=== PATIENT | male | born 1950 | race African-American/Black ===

== ENCOUNTER 2017-08-08 16:27 | Observation (INO) | payer MEDICAID ==
--- NOTE | 2017-08-08 16:41 | Emergency Department Record ---
History of Present Illness - General Chief complaint: Nausea, Vomiting, Diarrhea Stated complaint: DIARRHEA,VOMITING Time Seen by Provider: 08/08/17 16:38 Source: Patient Mode of Arrival: Wheelchair Limitations: No limitations - History of Present Illness Initial comments: The patient is here due to a 2 hour hx of the acute onset of first nausea then vomiting and loose watery stools. He thinks he may have food poisoning. The patient denies any blood in the stool or vomit. He states he is having some abdominal cramping off and on and did earlier have some JORDAN while vomiting but that has resolved. He has had no CP, fever, back pain, or URENA. The patient states no one at home is ill and his only abdominal surgery is a hernia. MD complaint: Abdominal pain, Diarrhea, Nausea, Vomiting Onset/Timin -: Hour(s) Description of Vomiting: Watery Description of Diarrhea: Water Associated Abdominal Pain: Yes Location: Diffuse Radiation: None Severity: Severe Severity scale (1-10): 10 Quality: Aching, Cramping Consistency: Constant Improves with: None Worsens with: None Context: Possible food poisoning Associated Symptoms: Nausea/vomiting - Related Data Home Medications Medication Instructions Recorded Confirmed Last Taken No Home Med [NO HOME MEDS] 08/08/17 08/08/17 Unknown Allergies Allergy/AdvReac Type Severity Reaction Status Date / Time Sulfa (Sulfonamide Allergy PT UNSURE Verified 08/08/17 16:37 Antibiotics) OF REACTION Travel Screening - Travel/Exposure Within Last 30 Days Have you traveled within the last 30 days?: No Review of Systems Constitutional: Denies: Chills, Fever Eyes: Denies: Eye discharge ENT: Denies: Congestion Respiratory: Denies: Cough, Dyspnea Past Medical History - SOCIAL HISTORY Smoking Status: Never smoker Alcohol Use: None Drug Use: None - RESPIRATORY Hx Respiratory Disorders: No - CARDIOVASCULAR Hx Cardio Disorders: No - NEURO Hx Neuro Disorders: No - GI Hx GI Disorders: No - Hx Genitourinary Disorders: No - ENDOCRINE Hx Endocrine Disorders: No - MUSCULOSKELETAL Hx Musculoskeletal Disorders: No - PSYCH Hx Psych Problems: No - HEMATOLOGY/ONCOLOGY Hx Hematology/Oncology Disorders: No Family Medical History Any Significant Family History?: No Physical Exam - General General Appearance: Alert, Oriented x3, Cooperative, No acute distress - Head Head exam: Atraumatic, Normocephalic, Normal inspection - Eye Eye exam: Normal appearance, PERRL, EOMI - Neck Neck exam: Normal inspection, Full ROM. negative: Tenderness - Respiratory Respiratory exam: Normal lung sounds bilaterally. negative: Respiratory distress - Cardiovascular Cardiovascular Exam: Regular rate, Normal rhythm, Normal heart sounds - GI/Abdominal GI/Abdominal exam: Soft, Normal bowel sounds. negative: Tenderness - Extremities Extremities exam: Normal inspection, Full ROM, Normal capillary refill. negative: Tenderness - Neurological Neurological exam: Alert, Normal gait, Oriented X3. negative: Abnormal gait, Altered, Motor sensory deficit Course Vital Signs 08/08/17 16:29 Temperature 97.7 F Pulse Rate 62 Respiratory 18 Rate Blood Pressure 159/82 Pulse Ox 100 - Reevaluation(s) Reevaluation #1: The patient is doing a lot better at this time. He is resting comfortably with no pain, nausea, or discomfort. On exam his abdomen is very soft and nontender in all 4 quads. 08/08/17 17:38 Reevaluation #2: The patient now is vomiting again and now just began to complain of mild chest discomfort with mild SOB. He denies any signficant AP but is still nauseated. Due to the new symptoms and also the fact his drug screen was positive for cocaine we will order cardiac enzymes and an EKG. 08/08/17 18:56 Reevaluation #3: Presently the patient is now denying any chest discomfort or SOB but is only have diffuse upper AP. He is still nauseated with vomiting. Due to that fact we will order an abdominal CT. 08/08/17 19:03 Reevaluation #4: The patient is doing better at this time. His care will be transferred to Dr. Friedman at 19:00 due to shift change. 08/08/17 19:07 Medical Decision Making - Data Complexity MDM Data: Labs Ordered and/or Reviewed, EKG Ordered and/or Reviewed - Lab Data Result diagrams: 08/08/17 17:19 08/08/17 17:19 - EKG Data -: EKG Interpreted by Me EKG: No Acute Changes, Normal EKG Disposition Forms: Patient Portal Access Quality - Quality Measures Quality Measures: N/A - Blood Pressure Screening View Details: Yes Does Patient Have Any of the Following: No Blood Pressure Classification: Pre-Hypertensive BP Reading Systolic Measurement: 159 Diastolic Measurement: 82 Screening for High Blood Pressure: < Pre-Hypertensive BP, F/U Documented > [ G8950] Pre-Hypertensive Follow-up Interventions: Referral to alternative/primary care provider.
[2017-08-08] MEDS ORDERED: 0.9 % SODIUM CHLORIDE 1,000 ML BAG IV ONE ×2 (16:44→18:06)
[2017-08-08] MEDS ORDERED: ONDANSETRON HCL IV 4 MG/2 ML VIAL IV ONE (16:44)
[2017-08-08 17:12] LABS: HEMATOCRIT 43.5 % (42.0-52.0); HEMOGLOBIN 14.2 gm/dl (14.0-18.0); MEAN CELL VOLUME 77.7 fl (81-97); MEAN CORPUSCULAR HEMOGLOBIN 25.4 pg (27-33); MEAN CORPUSCULAR HGB CONC 32.6 g/dl (32-36); MEAN PLATELET VOLUME 10.1 fl (7.4-10.4); PLATELET COUNT 402 K/uL (130-400); RED CELL DISTRIBUTION WIDTH 14.9 % (11.5-14.5); WHITE BLOOD COUNT W/O DIFF 11.6 K/uL (4.2-12.2)
[2017-08-08 17:26] LABS: BLOOD UREA NITROGEN 20 mg/dL (8-23); CREATININE 1.3 mg/dL (0.7-1.2); EST GLOMERULAR FILTRATION RATE 59 mL/min
[2017-08-08 17:27] LABS: TOTAL PROTEIN 7.9 g/dL (6.6-8.7)
[2017-08-08 17:29] LABS: GLUCOSE,RANDOM 171 mg/dL (74-109)
[2017-08-08 17:31] LABS: ALBUMIN 4.8 g/dL (4.0-5.0); ALT/SGPT 20 U/L (<41); AST/SGOT 30 U/L (10.0-50.0)
[2017-08-08 17:32] LABS: ALKALINE PHOSPHATASE 65 U/L (40-129); LIPASE 24 U/L (13-60)
[2017-08-08 17:37] LABS: BILIRUBIN,DIRECT < 0.2 mg/dL (0-0.3)
[2017-08-08 18:40] LABS: URINE APPEARANCE CLEAR; URINE BILIRUBIN NEGATIVE (NEGATIVE); URINE BLOOD SMALL (NEGATIVE); URINE COLOR YELLOW; URINE GLUCOSE (UA) NEGATIVE (NEGATIVE); URINE KETONE 15 mg/dL (NEGATIVE); URINE LEUKOCYTE ESTERASE NEGATIVE (NEGATIVE); URINE NITRITE NEGATIVE (NEGATIVE); URINE PROTEIN NEGATIVE (NEGATIVE); URINE UROBILINOGEN 0.2 E.U./dL (0.20 - 1.00)
[2017-08-08 18:47] LABS: COCAINE SCREEN URINE DETECTED; THC SCREEN URINE DETECTED
[2017-08-08 18:48] LABS: AMPHETAMINE SCREEN URINE NOT DETECTED; BARBITURATE SCREEN URINE NOT DETECTED; BENZODIAZEPINE SCREEN URINE NOT DETECTED; METHADONE SCREEN URINE NOT DETECTED; METHAMPHETAMINE SCREEN NOT DETECTED; OPIATE SCREEN URINE NOT DETECTED; OXYCODONE SCREEN URINE NOT DETECTED; PHENCYCLIDINE SCREEN URINE NOT DETECTED; PROPOXYPHENE SCREEN URINE NOT DETECTED; TRICYCLIC ANTIDEPRESSANT SCRN NOT DETECTED
[2017-08-08] MEDS ORDERED: ONDANSETRON HCL IV 4 MG/2 ML VIAL IVP ONE (18:54)
[2017-08-08 18:55] LABS: URINE EPITHELIAL CELLS 0 - 2 (FEW); URINE MUCUS MODERATE; URINE WBC 0 - 2 (0-2/hpf)
[2017-08-08] MEDS ORDERED: SUCRALFATE 1 G/10 ML UD PO ONE (19:02)
[2017-08-08 19:27] LABS: CREATINE PHOSPHOKINASE 802 U/L (39-308)
[2017-08-08 19:28] LABS: CKMB 6.7 ng/mL (<6.73)
[2017-08-08 19:30] LABS: CKMB RELATIVE INDEX 0.84 % (0-4)
[2017-08-08] MEDS ORDERED: PROMETHAZINE HCL 25 MG in 0.9 % SODIUM CHLORIDE 100ML 100 ML IVPB ONE (20:07)
--- NOTE | 2017-08-08 21:35 | Emergency Department Record ---
History of Present Illness - General Chief complaint: Nausea, Vomiting, Diarrhea Stated complaint: DIARRHEA,VOMITING Time Seen by Provider: 08/08/17 16:38 Source: Patient Mode of Arrival: Wheelchair Limitations: No limitations - History of Present Illness MD complaint: Abdominal pain, Diarrhea, Nausea, Vomiting Onset/Timin -: Hour(s) Description of Vomiting: Watery Description of Diarrhea: Water Associated Abdominal Pain: Yes Location: Diffuse Radiation: None Severity: Severe Severity scale (1-10): 10 Quality: Aching, Cramping Consistency: Constant Improves with: None Worsens with: None Context: Possible food poisoning Associated Symptoms: Nausea/vomiting - Related Data Home Medications Medication Instructions Recorded Confirmed Last Taken No Home Med [NO HOME MEDS] 08/08/17 08/08/17 Unknown Allergies Allergy/AdvReac Type Severity Reaction Status Date / Time Sulfa (Sulfonamide Allergy PT UNSURE Verified 08/08/17 16:37 Antibiotics) OF REACTION Travel Screening - Travel/Exposure Within Last 30 Days Have you traveled within the last 30 days?: No Review of Systems Constitutional: Denies: Chills, Fever Eyes: Denies: Eye discharge ENT: Denies: Congestion Respiratory: Denies: Cough, Dyspnea Past Medical History - SOCIAL HISTORY Smoking Status: Never smoker Alcohol Use: None Drug Use: None - RESPIRATORY Hx Respiratory Disorders: No - CARDIOVASCULAR Hx Cardio Disorders: No - NEURO Hx Neuro Disorders: No - GI Hx GI Disorders: No - Hx Genitourinary Disorders: No - ENDOCRINE Hx Endocrine Disorders: No - MUSCULOSKELETAL Hx Musculoskeletal Disorders: No - PSYCH Hx Psych Problems: No - HEMATOLOGY/ONCOLOGY Hx Hematology/Oncology Disorders: No Family Medical History Any Significant Family History?: No Physical Exam - General Limitations: No limitations Course Vital Signs 08/08/17 08/08/17 08/08/17 16:29 19:38 20:41 Temperature 97.7 F Pulse Rate 62 Pulse Rate [ 56 L 62 Pulse Ox Probe] Respiratory 18 14 14 Rate Blood Pressure 159/82 Blood Pressure 105/47 169/82 [Right Arm] Pulse Ox 100 94 L 99 - Reevaluation(s) Reevaluation #1: 08/08/17 21:26 pt is still vomiting. Medical Decision Making - Lab Data Result diagrams: 08/08/17 17:19 08/08/17 17:19 Lab Results 08/08/17 08/08/17 08/08/17 Range/Units 16:44 16:44 16:50 WBC (4.2-12.2) K/uL RBC (4.40-5.70) M/uL Hgb (14.0-18.0) gm/dl Hct (42.0-52.0) % MCV (81-97) fl MCH (27-33) pg MCHC (32-36) g/dl RDW (11.5-14.5) % Plt Count (130-400) K/uL MPV (7.4-10.4) fl Neutrophils % (47-80) % Band Neutrophils % (0-5) % Eosinophils % Basophils % Lymphocytes (16-45) % Monocytes (0-9) % Basophils (0-6) % Eosinophil Count (0-6) % Sodium (136-145) mmol/L Potassium (3.4-4.5) mmol/L Chloride (98-107) mmol/L Carbon Dioxide (22-29) mmol/L Anion Gap (7-16) BUN (8-23) mg/dL Creatinine (0.7-1.2) mg/dL Estimated GFR mL/min Random Glucose (74-109) mg/dL Calcium (8.8-10.2) mg/dL Total Bilirubin (0.2-1.0) mg/dL Direct Bilirubin (0-0.3) mg/dL AST (10.0-50.0) U/L ALT (<41) U/L Alkaline Phosphatase (40-129) U/L Creatine Kinase 802 H (39-308) U/L CK-MB (CK-2) 6.7 (<6.73) ng/mL CK-MB (CK-2) Rel Index 0.84 (0-4) % Troponin T < 0.010 (0-0.010) ng/mL Total Protein (6.6-8.7) g/dL Albumin (4.0-5.0) g/dL Lipase (13-60) U/L Urine Color Yellow Urine Appearance Clear Urine pH 6.0 (5.0-8.0) Ur Specific [place] 1.020 (1.002-1.030) Urine Protein Negative (NEGATIVE) Urine Glucose (UA) Negative (NEGATIVE) Urine Ketones 15 mg/dl H (NEGATIVE) Urine Blood Small H (NEGATIVE) Urine Nitrite Negative (NEGATIVE) Urine Bilirubin Negative (NEGATIVE) Urine Urobilinogen 0.2 (0.20 - 1.00) E.U./dL Ur Leukocyte Esterase Negative (NEGATIVE) Urine RBC 3 - 6 (NONE SEEN) Urine WBC 0 - 2 (0-2/hpf) Ur Epithelial Cells 0 - 2 (FEW) Urine Mucus Moderate Urine Opiates Screen Not detected Ur Oxycodone Screen Not detected Urine Methadone Screen Not detected Ur Propoxyphene Screen Not detected Ur Barbituates Screen Not detected Ur Tricyclics Screen Not detected Ur Phencyclidine Scrn Not detected Ur Amphetamine Screen Not detected U Methamphetamines Scrn Not detected U Benzodiazepines Scrn Not detected Urine Cocaine Screen Detected Urine Cannabis Screen Detected 08/08/17 08/08/17 08/08/17 Range/Units 16:50 17:19 17:19 WBC 11.6 (4.2-12.2) K/uL RBC 5.60 (4.40-5.70) M/uL Hgb 14.2 (14.0-18.0) gm/dl Hct 43.5 (42.0-52.0) % MCV 77.7 L (81-97) fl MCH 25.4 L (27-33) pg MCHC 32.6 (32-36) g/dl RDW 14.9 H (11.5-14.5) % Plt Count 402 H (130-400) K/uL MPV 10.1 (7.4-10.4) fl Neutrophils % 80.0 (47-80) % Band Neutrophils % 0.0 (0-5) % Eosinophils % Not Reportable Basophils % Not Reportable Lymphocytes 15.0 L (16-45) % Monocytes 4.0 (0-9) % Basophils 0.0 (0-6) % Eosinophil Count 1.0 (0-6) % Sodium 146 H (136-145) mmol/L Potassium 4.0 (3.4-4.5) mmol/L Chloride 100 (98-107) mmol/L Carbon Dioxide 26.0 (22-29) mmol/L Anion Gap 20.0 H (7-16) BUN 20 (8-23) mg/dL Creatinine 1.3 H (0.7-1.2) mg/dL Estimated GFR 59 mL/min Random Glucose 171 H (74-109) mg/dL Calcium 9.8 (8.8-10.2) mg/dL Total Bilirubin 0.50 (0.2-1.0) mg/dL Direct Bilirubin < 0.2 (0-0.3) mg/dL AST 30 (10.0-50.0) U/L ALT 20 (<41) U/L Alkaline Phosphatase 65 (40-129) U/L Creatine Kinase Cancelled (39-308) U/L CK-MB (CK-2) (<6.73) ng/mL CK-MB (CK-2) Rel Index (0-4) % Troponin T (0-0.010) ng/mL Total Protein 7.9 (6.6-8.7) g/dL Albumin 4.8 (4.0-5.0) g/dL Lipase 24 (13-60) U/L Urine Color Urine Appearance Urine pH (5.0-8.0) Ur Specific [place] (1.002-1.030) Urine Protein (NEGATIVE) Urine Glucose (UA) (NEGATIVE) Urine Ketones (NEGATIVE) Urine Blood (NEGATIVE) Urine Nitrite (NEGATIVE) Urine Bilirubin (NEGATIVE) Urine Urobilinogen (0.20 - 1.00) E.U./dL Ur Leukocyte Esterase (NEGATIVE) Urine RBC (NONE SEEN) Urine WBC (0-2/hpf) Ur Epithelial Cells (FEW) Urine Mucus Urine Opiates Screen Ur Oxycodone Screen Urine Methadone Screen Ur Propoxyphene Screen Ur Barbituates Screen Ur Tricyclics Screen Ur Phencyclidine Scrn Ur Amphetamine Screen U Methamphetamines Scrn U Benzodiazepines Scrn Urine Cocaine Screen Urine Cannabis Screen Disposition Disposition: Admit Clinical Impression: Cocaine abuse Intractable vomiting with nausea Qualifiers: Vomiting type: cyclical vomiting Qualified Code(s): G43.A1 - Cyclical vomiting , intractable Chest pain Qualifiers: Chest pain type: unspecified Qualified Code(s): R07.9 - Chest pain, unspecified Disposition: Still a Patient at [facility] Decision to Admit: Admit from ER Decision to Admit Date: 08/08/17 Decision to Admit Time: 21:27 Forms: Patient Portal Access Quality - Quality Measures Quality Measures: N/A - Blood Pressure Screening Does Patient Have Any of the Following: No Blood Pressure Classification: Pre-Hypertensive BP Reading Systolic Measurement: 159 Diastolic Measurement: 82 Screening for High Blood Pressure: < Pre-Hypertensive BP, F/U Documented > [ G8950] Pre-Hypertensive Follow-up Interventions: Follow-up with rescreen every year.
[2017-08-08] MEDS ORDERED: TEMAZEPAM 15 MG CAPSULE PO PRN (22:32)
[2017-08-08] MEDS ORDERED: ACETAMINOPHEN 500 MG TABLET PO PRN (22:32)
[2017-08-08] MEDS ORDERED: ONDANSETRON HCL IV 4 MG/2 ML VIAL IVP PRN (22:32)
[2017-08-08] MEDS ORDERED: NITROGLYCERIN 0.4MG SL TABLET #25 BTL SL PRN (22:32)
[2017-08-08] MEDS: 0.9 % SODIUM CHLORIDE 1000ML 1,000 ML IV PRN (23:58)
--- NOTE | 2017-08-09 07:25 | RADIOLOGY REPORT ---
EXAM: CHEST, TWO VIEWS HISTORY: NAUSEA, VOMITING, DIARRHEA, DIFFICULTY IN BREATHING. TECHNIQUE: PA and lateral views of the chest were obtained. Comparison: None. FINDINGS: The heart size is normal. The lungs appear expanded with no acute infiltrate seen. No pleural effusion or pneumothorax evident. A relatively deep inspiration was taken. Mild spurring in the spine. IMPRESSION: 1. DEEP INSPIRATION. 2. MILD SPURRING IN THE SPINE. 3. NO ACUTE INFILTRATE IDENTIFIED. JOB NUMBER: [id number] MTDD
--- NOTE | 2017-08-09 07:37 | CT SCAN REPORT ---
EXAM: CT OF THE ABDOMEN AND PELVIS WITHOUT CONTRAST HISTORY: NAUSEA, VOMITING, DIARRHEA FOR A DAY. TECHNIQUE: Axial CT scan of the abdomen and pelvis was performed without oral or IV contrast. Comparison: None. FINDINGS: No calcified gallstones were seen within the gallbladder. No intrarenal calculi or hydronephrosis identified on either side. No hydroureter is seen in either side as well and as such the nondilated ureters are somewhat difficult to follow throughout the retroperitoneum and pelvis. No definite ureteral calculus seen on either side and no bladder calculus evident. The prostate appears mildly enlarged measuring about 4.5 cm in AP x 5.5 cm in transverse diameters. Correlation with physical exam and serum PSA is suggested. Evaluation of the bowel and viscera is extremely limited without oral or IV contrast. Given this limitation, no definite hepatic, splenic, adrenal, pancreatic or renal mass identified. Oval structure in the region of the inguinal canal on the right may be some fluid representing a hydrocele and correlation with physical exam suggested. Very small periumbilical anterior abdominal wall hernia containing adipose tissue, but no bowel. I believe the appendix is visualized as a normal caliber structure with no appendicitis evident. No free intraperitoneal air or free intraperitoneal fluid identified. There is probably some fine wire suture in the right lower quadrant which may be related to a prior hernia repair. Multilevel facet joint arthropathy in the lumbar spine. IMPRESSION: 1. THIS STUDY IS QUITE LIMITED BY LACK OF ORAL AND IV CONTRAST. NO DEFINITE URINARY TRACT CALCULI EVIDENT. 2. VERY SMALL PERIUMBILICAL ANTERIOR ABDOMINAL WALL HERNIA CONTAINING ADIPOSE TISSUE, BUT NO BOWEL. 3. OVAL ELONGATED LOW ATTENUATION CONTENT IN THE REGION OF THE LOWER RIGHT INGUINAL CANAL MAY BE A HYDROCELE, BUT IS NONSPECIFIC AND CORRELATION WITH PHYSICAL EXAM SUGGESTED. THIS MEASURES ABOUT 4 CM IN TRANSVERSE X 2.1 CM IN AP DIAMETER AND HAS A CRANIOCAUDAL LENGTH OF APPROXIMATELY 6.2 CM. 4. NO APPENDICITIS EVIDENT. NO FREE AIR OR FREE FLUID EVIDENT. 5. FACET JOINT ARTHROPATHY AT MULTIPLE LEVELS IN THE LUMBAR SPINE. 6. MILD ENLARGEMENT OF THE PROSTATE. JOB NUMBER: [id number] MTDD
[2017-08-09] MEDS: 0.9 % SODIUM CHLORIDE 1000ML 1,000 ML IV PRN (08:05)
--- NOTE | 2017-08-09 09:56 | History & Physical ---
History of Present Illness - Date of Service Date of Service for History & Physical: 08/09/17 - History of Present Illness Admitting Diagnosis: chest pain, intractable vomiting, cocaine use History of Present Illness: Mr. Hernandez is a 66 year-old male who presented to the ED the afternoon of 08/08/17 with complaint of 2-hour history of acute onset of nausea and vomiting and loose watery stools. He stated that he may have food poisoning. He denied blood in his stool or vomit. He states he is having some abdominal cramping off and on and did earlier have some JORDAN while vomiting but that had resolved. He has had no CP, fever, back pain, or URENA. The patient states no one at home is ill and his only abdominal surgery is a hernia. He denies any pertinent health history. In the ED, his BP was 159/82, RR 18, pulse 62, 100% on room air, and temp of 97.7F. He continued vomiting and his urine toxicology results revealed that he was positive for cocaine and cannabis, so cardiac enzymes and an EKG were ordered. Troponin was negative and EKG normal. Chest xray was negative for acute process. Abdominal CT was ordered for diffuse upper abdominal pain and was negative for acute process. CT did demonstrate some mild prostate enlargement and facet joint arthropathy of the lumbar spine. UA did reveal small amount of blood and ketones. He was admitted under observation for intractable nausea and vomiting. Plan to continue IV fluids, management of nausea, and monitoring of cardiac enzymes. 08/09/17 0900: Pt. is resting in bed. He states that he did eat some jello and juice and did end up vomiting a small amount. He currently denies nausea, abdominal pain and diarrhea, he states that he is very tired. VSS, he remains in NSR on tele. Will plan to continue to monitor cardiac enzymes, (first 2 sets negative), will recheck CBC and CMP, added A1C and TSH this morning. Will continue IV fluids. Travel Screening - Travel/Exposure Within Last 30 Days Have you traveled within the last 30 days?: No - Travel/Exposure Within Last Year Have you traveled outside the [place] in the last year?: No - Additonal Travel Details Have you been exposed to anyone with a communicable illness?: No - Travel Symptoms Symptom Screening: Diarrhea, Vomiting, Stomach Pain Review of Systems Constitutional: Denies: Chills, Fever Eyes: Denies: Eye discharge ENT: Denies: Congestion Respiratory: Denies: Cough, Dyspnea Cardiovascular: Reports: As per HPI. Denies: Arrhythmia, Chest pain, Dyspnea on exertion, Edema, Murmurs, Orthopnea, Palpitations, Paroxysmal nocturnal dyspnea, Rheumatic Fever, Syncope Endocrine: Reports: As per HPI. Denies: Fatigue, Heat or cold intolerance, Polydipsia, Polyuria Gastrointestinal: Reports: Diarrhea, Nausea, Vomiting Genitourinary: Reports: As per HPI. Denies: Dysuria, Frequency, Hematuria, Incontinence, Retention, Testicular pain, Testicular mass, Urgency Musculoskeletal: Reports: As per HPI. Denies: Arthralgia, Back pain, Gout, Joint swelling, Myalgia, Neck pain Skin: Reports: As per HPI. Denies: Bruising, Change in color, Change in hair/ nails, Lesions, Pruritus, Rash Neurological: Reports: As per HPI. Denies: Abnormal gait, Confusion, Headache, Numbness, Paresthesias, Seizure, Tingling, Tremors, Vertigo, Weakness Psychiatric: Reports: As per HPI. Denies: Anxiety, Auditory hallucinations, Depression, Homicidal thoughts, Suicidal thoughts, Visual hallucinations Hematological/Lymphatic: Reports: As per HPI. Denies: Anemia, Blood Clots, Easy bleeding, Easy bruising, Swollen glands Past Medical History - SOCIAL HISTORY Smoking Status: Never smoker Alcohol Use: None Drug Use: None - RESPIRATORY Hx Respiratory Disorders: No - CARDIOVASCULAR Hx Cardio Disorders: No - NEURO Hx Neuro Disorders: No - GI Hx GI Disorders: No - Hx Genitourinary Disorders: No - ENDOCRINE Hx Endocrine Disorders: No Hx Diabetes: No Hx Thyroid Disease: No - MUSCULOSKELETAL Hx Musculoskeletal Disorders: No - PSYCH Hx Psych Problems: No - HEMATOLOGY/ONCOLOGY Hx Hematology/Oncology Disorders: No Family Medical History Any Significant Family History?: Yes Hx Dementia: Mother H&P Meds/Allergies - Allergies Allergies: Allergies Allergy/AdvReac Type Severity Reaction Status Date / Time Sulfa (Sulfonamide Allergy PT UNSURE Verified 08/08/17 16:37 Antibiotics) OF REACTION - Home Medications Home Medications Medication Instructions Recorded Confirmed Last Taken No Home Med [NO HOME MEDS] 08/08/17 08/08/17 Unknown - Active Medications Active Medications: Current Medications Acetaminophen (Tylenol 500mg Tab) 1,000 mg PO Q6H PRN PRN Reason: PAIN/TEMP Aspirin (Ecotrin (Ec)) 325 mg PO DAILY JOSE Last Admin: 08/09/17 08:13 Dose: 325 mg Sodium Chloride () 1,000 mls @ 125 mls/hr IV .Q8H PRN PRN Reason: LARGE VOLUME IV Last Admin: 08/09/17 08:05 Dose: 125 mls/hr Nitroglycerin (Nitrostat 0.4mg) 0.4 mg SL Q5MIN PRN PRN Reason: CHEST PAIN Ondansetron HCl (Zofran) 4 mg IVP Q6H PRN PRN Reason: NAUSEA Temazepam (Restoril) 15 mg PO QHS PRN PRN Reason: INSOMNIA Physical Exam - Vital Signs Vital Signs: Vital Signs - Last 24 Hrs Temp Pulse Pulse Pulse Resp BP BP 08/09/17 08:34 88 22 08/09/17 08:30 99.5 F 72 16 08/09/17 04:00 99.3 F 65 15 157/85 08/09/17 00:00 98.1 F 68 15 141/81 08/08/17 22:32 97.5 F L 66 18 171/84 08/08/17 22:14 70 16 08/08/17 21:48 98.7 F 88 16 08/08/17 20:41 62 14 08/08/17 19:38 56 L 14 08/08/17 16:29 97.7 F 62 18 159/82 BP Pulse Ox 08/09/17 08:34 08/09/17 08:30 119/68 100 08/09/17 04:00 100 08/09/17 00:00 99 08/08/17 22:32 98 08/08/17 22:14 156/91 99 08/08/17 21:48 159/80 98 08/08/17 20:41 169/82 99 08/08/17 19:38 105/47 94 L 08/08/17 16:29 100 - General General Appearance: Alert, Oriented x3, Cooperative, No acute distress Limitations: No limitations - Head Head exam: Atraumatic, Normocephalic, Normal inspection - Eye Eye exam: Normal appearance, PERRL, EOMI - Neck Neck exam: Normal inspection, Full ROM. negative: Tenderness - Respiratory Respiratory exam: Normal lung sounds bilaterally. negative: Respiratory distress - Cardiovascular Cardiovascular Exam: Regular rate, Normal rhythm, Normal heart sounds - GI/Abdominal GI/Abdominal exam: Soft, Normal bowel sounds. negative: Tenderness - Rectal Rectal exam: Deferred - exam: Deferred - Extremities Extremities exam: Normal inspection, Full ROM, Normal capillary refill. negative: Tenderness - Neurological Neurological exam: Alert, Normal gait, Oriented X3. negative: Abnormal gait, Altered, Motor sensory deficit Results - Labs Result Diagrams: 08/08/17 17:19 08/08/17 17:19 Labs Last 24 Hours: Laboratory Results - last 24 hr 08/08/17 08/08/17 08/08/17 16:44 16:44 16:50 WBC RBC Hgb Hct MCV MCH MCHC RDW Plt Count MPV Neutrophils % Band Neutrophils % Eosinophils % Basophils % Lymphocytes Monocytes Basophils Eosinophil Count Sodium Potassium Chloride Carbon Dioxide Anion Gap BUN Creatinine Estimated GFR Random Glucose Calcium Total Bilirubin Direct Bilirubin AST ALT Alkaline Phosphatase Creatine Kinase 802 H CK-MB (CK-2) 6.7 CK-MB (CK-2) Rel Index 0.84 Troponin T < 0.010 Total Protein Albumin Lipase Urine Color Yellow Urine Appearance Clear Urine pH 6.0 Ur Specific [place] 1.020 Urine Protein Negative Urine Glucose (UA) Negative Urine Ketones 15 mg/dl H Urine Blood Small H Urine Nitrite Negative Urine Bilirubin Negative Urine Urobilinogen 0.2 Ur Leukocyte Esterase Negative Urine RBC 3 - 6 Urine WBC 0 - 2 Ur Epithelial Cells 0 - 2 Urine Mucus Moderate Urine Opiates Screen Not detected Ur Oxycodone Screen Not detected Urine Methadone Screen Not detected Ur Propoxyphene Screen Not detected Ur Barbituates Screen Not detected Ur Tricyclics Screen Not detected Ur Phencyclidine Scrn Not detected Ur Amphetamine Screen Not detected U Methamphetamines Scrn Not detected U Benzodiazepines Scrn Not detected Urine Cocaine Screen Detected Urine Cannabis Screen Detected 08/08/17 08/08/17 08/08/17 16:50 17:19 17:19 WBC 11.6 RBC 5.60 Hgb 14.2 Hct 43.5 MCV 77.7 L MCH 25.4 L MCHC 32.6 RDW 14.9 H Plt Count 402 H MPV 10.1 Neutrophils % 80.0 Band Neutrophils % 0.0 Eosinophils % Not Reportable Basophils % Not Reportable Lymphocytes 15.0 L Monocytes 4.0 Basophils 0.0 Eosinophil Count 1.0 Sodium 146 H Potassium 4.0 Chloride 100 Carbon Dioxide 26.0 Anion Gap 20.0 H BUN 20 Creatinine 1.3 H Estimated GFR 59 Random Glucose 171 H Calcium 9.8 Total Bilirubin 0.50 Direct Bilirubin < 0.2 AST 30 ALT 20 Alkaline Phosphatase 65 Creatine Kinase Cancelled CK-MB (CK-2) CK-MB (CK-2) Rel Index Troponin T Total Protein 7.9 Albumin 4.8 Lipase 24 Urine Color Urine Appearance Urine pH Ur Specific [place] Urine Protein Urine Glucose (UA) Urine Ketones Urine Blood Urine Nitrite Urine Bilirubin Urine Urobilinogen Ur Leukocyte Esterase Urine RBC Urine WBC Ur Epithelial Cells Urine Mucus Urine Opiates Screen Ur Oxycodone Screen Urine Methadone Screen Ur Propoxyphene Screen Ur Barbituates Screen Ur Tricyclics Screen Ur Phencyclidine Scrn Ur Amphetamine Screen U Methamphetamines Scrn U Benzodiazepines Scrn Urine Cocaine Screen Urine Cannabis Screen 08/09/17 08/09/17 02:15 02:15 WBC RBC Hgb Hct MCV MCH MCHC RDW Plt Count MPV Neutrophils % Band Neutrophils % Eosinophils % Basophils % Lymphocytes Monocytes Basophils Eosinophil Count Sodium Potassium Chloride Carbon Dioxide Anion Gap BUN Creatinine Estimated GFR Random Glucose Calcium Total Bilirubin Direct Bilirubin AST ALT Alkaline Phosphatase Creatine Kinase CK-MB (CK-2) 5.8 CK-MB (CK-2) Rel Index Troponin T < 0.010 Total Protein Albumin Lipase Urine Color Urine Appearance Urine pH Ur Specific [place] Urine Protein Urine Glucose (UA) Urine Ketones Urine Blood Urine Nitrite Urine Bilirubin Urine Urobilinogen Ur Leukocyte Esterase Urine RBC Urine WBC Ur Epithelial Cells Urine Mucus Urine Opiates Screen Ur Oxycodone Screen Urine Methadone Screen Ur Propoxyphene Screen Ur Barbituates Screen Ur Tricyclics Screen Ur Phencyclidine Scrn Ur Amphetamine Screen U Methamphetamines Scrn U Benzodiazepines Scrn Urine Cocaine Screen Urine Cannabis Screen - Imaging and Cardiology CT scan - abdomen Status: Report reviewed Chest x-ray Status: Report reviewed VTE H&P Assessment - Risk for VTE Risk for VTE: Yes Risk Level: Very Low Risk Assessment Date: 08/09/17 Risk Assessment Time: 09:59 VTE Orders Placed or Will Be Placed: Yes Plan - Detailed Diagnosis and Plan (1) Intractable vomiting with nausea Current Visit: Yes Status: Acute Qualifiers: Vomiting type: cyclical vomiting Qualified Code(s): G43.A1 - Cyclical vomiting, intractable Base Code: R11.2 - NAUSEA WITH VOMITING, UNSPECIFIED Comment: 08/09/17: -Pt. presented to ED on afternoon of 08/08/17 with c/o sudden onset of nausea and vomiting- thought to be food poisoning -Positive cocaine and cannabis on UDS -Pt. did tolerate clear fluids this morning -IV zofran prn nausea -Will continue IV fluids -Ordered repeat CBC and CMP, added A1C and TSH (2) Cocaine abuse Current Visit: Yes Status: Acute Base Code: F14.10 - COCAINE ABUSE, UNCOMPLICATED Comment: 08/09/17: -Positive cocaine on urine drug screen in ED on 08/08/17 -First 2 sets of cardiac enzymes negative -EKG NSR and CXR negative for acute process -Pt. remains in NSR on tele -Will continue to monitor VS, 3rd set of cardiac enzymes (3) At risk for deep venous thrombosis Current Visit: Yes Status: Acute Base Code: Z91.89 - OTH PERSONAL RISK FACTORS, NOT ELSEWHERE CLASSIFIED Comment: 08/09/17: -Lovenox 40mg SC ordered qHS for DVT prophylaxis (4) Full code status Current Visit: Yes Status: Acute Base Code: Z78.9 - OTHER SPECIFIED HEALTH STATUS Comment: 08/09/17: -Pt. is a full code
[2017-08-09] MEDS ORDERED: ASPIRIN 325 MG TAB ENTERIC-COATED PO SCH (10:00)
[2017-08-09 10:16] LABS: BASO % 0.2 % (0-6); GRAN % 74.7 % (47-80); LYMPH % 15.1 % (16-45); MEAN CELL VOLUME 77.1 fl (81-97); MEAN CORPUSCULAR HGB CONC 32.5 g/dl (32-36); MEAN PLATELET VOLUME 9.7 fl (7.4-10.4); PLATELET COUNT 360 K/uL (130-400); RED BLOOD COUNT 5.19 M/uL (4.40-5.70); RED CELL DISTRIBUTION WIDTH 14.6 % (11.5-14.5); WHITE BLOOD COUNT W/O DIFF 13.3 K/uL (4.2-12.2)
[2017-08-09 10:55] LABS: BLOOD UREA NITROGEN 15 mg/dL (8-23); GLUCOSE,RANDOM 111 mg/dL (74-109)
[2017-08-09 10:57] LABS: ALB/GLOB RATIO 1.6 (1.1-1.8); ALBUMIN 4.4 g/dL (4.0-5.0); ALKALINE PHOSPHATASE 59 U/L (40-129); ALT/SGPT 20 U/L (<41); AST/SGOT 26 U/L (10.0-50.0); TOTAL PROTEIN 7.1 g/dL (6.6-8.7)
[2017-08-09 10:58] LABS: CKMB 6.1 ng/mL (<6.73)
[2017-08-09 11:22] LABS: EST GLOMERULAR FILTRATION RATE > 60 mL/min
[2017-08-09 11:24] LABS: THYROID STIMULATING HORMONE 0.75 uIU/mL (0.270-4.20)
[2017-08-09 14:32] LABS: CKMB RELATIVE INDEX 0.7 % (0-4)
[2017-08-09 15:48] LABS: URINE APPEARANCE CLEAR; URINE BILIRUBIN NEGATIVE (NEGATIVE); URINE BLOOD SMALL (NEGATIVE); URINE COLOR YELLOW; URINE GLUCOSE (UA) NEGATIVE (NEGATIVE); URINE KETONE 15 mg/dL (NEGATIVE); URINE LEUKOCYTE ESTERASE NEGATIVE (NEGATIVE); URINE NITRITE NEGATIVE (NEGATIVE); URINE PROTEIN NEGATIVE (NEGATIVE); URINE UROBILINOGEN 0.2 E.U./dL (0.20 - 1.00)
[2017-08-09 15:57] LABS: URINE BACTERIA NONE SEEN; URINE EPITHELIAL CELLS 0 - 2 (FEW); URINE RBC 0 - 2 (NONE SEEN); URINE WBC NONE SEEN (0-2/hpf)
[2017-08-09] MEDS ORDERED: ONDANSETRON 4 MG ODT TABLET SL PRN (17:18)
--- NOTE | 2017-08-09 17:25 | Discharge Summary ---
Providers Discharge Summary Date: 08/09/17 Date of admission: 08/08/17 22:07 Expected Date of Discharge: 08/09/17 Attending physician: ZAC SCHILLING Physical Exam - Vital Signs Vital Signs: Vital Signs - Last 24 Hrs Temp Pulse Pulse Pulse Resp BP BP 08/09/17 12:00 99.2 F 65 16 140/76 08/09/17 10:41 88 18 08/09/17 08:34 88 22 08/09/17 08:30 99.5 F 72 16 119/68 08/09/17 04:00 99.3 F 65 15 157/85 08/09/17 00:00 98.1 F 68 15 141/81 08/08/17 22:32 97.5 F L 66 18 171/84 08/08/17 22:14 70 16 156/91 08/08/17 21:48 98.7 F 88 16 159/80 08/08/17 20:41 62 14 169/82 08/08/17 19:38 56 L 14 105/47 Pulse Ox 08/09/17 12:00 99 08/09/17 10:41 99 08/09/17 08:34 08/09/17 08:30 100 08/09/17 04:00 100 08/09/17 00:00 99 08/08/17 22:32 98 08/08/17 22:14 99 08/08/17 21:48 98 08/08/17 20:41 99 08/08/17 19:38 94 L - General General Appearance: Alert, Oriented x3, Cooperative, No acute distress Limitations: No limitations - Head Head exam: Atraumatic, Normocephalic, Normal inspection - Eye Eye exam: Normal appearance, PERRL, EOMI - Neck Neck exam: Normal inspection, Full ROM. negative: Tenderness - Respiratory Respiratory exam: Normal lung sounds bilaterally. negative: Respiratory distress - Cardiovascular Cardiovascular Exam: Regular rate, Normal rhythm, Normal heart sounds - GI/Abdominal GI/Abdominal exam: Soft, Normal bowel sounds. negative: Tenderness - Rectal Rectal exam: Deferred - exam: Deferred - Extremities Extremities exam: Normal inspection, Full ROM, Normal capillary refill. negative: Tenderness - Neurological Neurological exam: Alert, Normal gait, Oriented X3. negative: Abnormal gait, Altered, Motor sensory deficit Hospitalization - Hospitalization Admission Diagnosis: chest pain, intractable vomiting, cocaine use - Problem List/Discharge Diagnosis (1) Intractable vomiting with nausea Current Visit: Yes Status: Acute Discharge Diagnosis: Vomiting type: cyclical vomiting Qualified Code(s): G43.A1 - Cyclical vomiting, intractable Base Code: R11.2 - NAUSEA WITH VOMITING, UNSPECIFIED Comment: 08/09/17: -Pt. presented to ED on afternoon of 08/08/17 with c/o sudden onset of nausea and vomiting- thought to be food poisoning -Positive cocaine and cannabis on UDS -Pt. has been tolerating clear fluids and has not complained of nausea since this morning -Labs wnl, UA positive for blood- recommended outpatient f/u with pcp -Plan to d/c home this evening, providing script of PO zofran 4mg tid prn nausea (2) Cocaine abuse Current Visit: Yes Status: Acute Base Code: F14.10 - COCAINE ABUSE, UNCOMPLICATED Comment: 08/09/17: -Positive cocaine on urine drug screen in ED on 08/08/17 -Serial cardiac enzymed all negative -EKG NSR and CXR negative for acute process -Pt. remains in NSR on tele -Will continue to monitor VS, 3rd set of cardiac enzymes (3) At risk for deep venous thrombosis Current Visit: Yes Status: Acute Base Code: Z91.89 - OTH PERSONAL RISK FACTORS, NOT ELSEWHERE CLASSIFIED Comment: 08/09/17: -No dvt prophylaxis indicated for discharge- pt. will return to normal level of activity (4) Full code status Current Visit: Yes Status: Acute Base Code: Z78.9 - OTHER SPECIFIED HEALTH STATUS Comment: 08/09/17: -Pt. is a full code - Disposition Discharge home, self-care - Hospitalization Course Hospital Course: Mr. Hernandez is a 66 year-old male who presented to the ED the afternoon of 08/08/17 with complaint of 2-hour history of acute onset of nausea and vomiting and loose watery stools. He stated that he may have food poisoning. He denied blood in his stool or vomit. He states he is having some abdominal cramping off and on and did earlier have some JORDAN while vomiting but that had resolved. He has had no CP, fever, back pain, or URENA. The patient states no one at home is ill and his only abdominal surgery is a hernia. He denies any pertinent health history. In the ED, his BP was 159/82, RR 18, pulse 62, 100% on room air, and temp of 97.7F. He continued vomiting and his urine toxicology results revealed that he was positive for cocaine and cannabis, so cardiac enzymes and an EKG were ordered. Troponin was negative and EKG normal. Chest xray was negative for acute process. Abdominal CT was ordered for diffuse upper abdominal pain and was negative for acute process. CT did demonstrate some mild prostate enlargement and facet joint arthropathy of the lumbar spine. UA did reveal small amount of blood and ketones. He was admitted under observation for intractable nausea and vomiting. Plan to continue IV fluids, management of nausea, and monitoring of cardiac enzymes. 08/09/17 0900: Pt. is resting in bed. He states that he did eat some jello and juice and did end up vomiting a small amount. He currently denies nausea, abdominal pain and diarrhea, he states that he is very tired. VSS, he remains in NSR on tele. Will plan to continue to monitor cardiac enzymes, (first 2 sets negative), will recheck CBC and CMP, added A1C and TSH this morning. Will continue IV fluids. 08/09/17 1700: Pt. has denied nausea since this morning. Labs WNL. UA postive for blood, pt. asymptomatic, recommended op follow-up with pcp. Will d/c home this evening and provide prescription for zofran 4mg po tid prn nausea. Procedures: Imaging and X-Rays 08/08/17 18:57 CHEST 2 VIEWS [RAD] Stat 08/08/17 19:02 ABDOMEN/PELVIS WO CONTRAST [CT] Stat Cardiology Procedures 08/08/17 18:54 EKG NOW 08/08/17 22:32 Shipping Technician .Continuous EKG QDX2@0600 Abnormal Labs: Abnormal Lab Results 08/08/17 08/08/17 08/08/17 Range/Units 16:44 16:50 17:19 WBC (4.2-12.2) K/uL Hgb (14.0-18.0) gm/dl Hct (42.0-52.0) % MCV 77.7 L (81-97) fl MCH 25.4 L (27-33) pg RDW 14.9 H (11.5-14.5) % Plt Count 402 H (130-400) K/uL Lymphocytes % (16-45) % Monocytes % (0-9) % Lymphocytes 15.0 L (16-45) % Sodium (136-145) mmol/L Anion Gap (7-16) Creatinine (0.7-1.2) mg/dL Random Glucose (74-109) mg/dL Creatine Kinase 802 H (39-308) U/L Cholesterol (<200) mg/dL LDL Cholesterol [place] (0-100) mg/dL HDL Cholesterol (40-60) mg/dL Urine Ketones 15 mg/dl H (NEGATIVE) Urine Blood Small H (NEGATIVE) 08/08/17 08/09/17 08/09/17 Range/Units 17:19 10:08 10:08 WBC (4.2-12.2) K/uL Hgb (14.0-18.0) gm/dl Hct (42.0-52.0) % MCV (81-97) fl MCH (27-33) pg RDW (11.5-14.5) % Plt Count (130-400) K/uL Lymphocytes % (16-45) % Monocytes % (0-9) % Lymphocytes (16-45) % Sodium 146 H (136-145) mmol/L Anion Gap 20.0 H (7-16) Creatinine 1.3 H (0.7-1.2) mg/dL Random Glucose 171 H (74-109) mg/dL Creatine Kinase 841 H (39-308) U/L Cholesterol 217 H (<200) mg/dL LDL Cholesterol [place] 135.0 H (0-100) mg/dL HDL Cholesterol 63 H (40-60) mg/dL Urine Ketones (NEGATIVE) Urine Blood (NEGATIVE) 08/09/17 08/09/17 08/09/17 Range/Units 10:08 10:08 13:29 WBC 13.3 H (4.2-12.2) K/uL Hgb 13.0 L (14.0-18.0) gm/dl Hct 40.0 L (42.0-52.0) % MCV 77.1 L (81-97) fl MCH 25.0 L (27-33) pg RDW 14.6 H (11.5-14.5) % Plt Count (130-400) K/uL Lymphocytes % 15.1 L (16-45) % Monocytes % 10.0 H (0-9) % Lymphocytes (16-45) % Sodium (136-145) mmol/L Anion Gap 20.0 H (7-16) Creatinine (0.7-1.2) mg/dL Random Glucose 111 H (74-109) mg/dL Creatine Kinase (39-308) U/L Cholesterol (<200) mg/dL LDL Cholesterol [place] (0-100) mg/dL HDL Cholesterol (40-60) mg/dL Urine Ketones 15 mg/dl H (NEGATIVE) Urine Blood Small H (NEGATIVE) Condition at Discharge: (2) Stable VTE Discharge VTE Reason For No Overlap Therapy: Not Indicated Discharge Medications - Discharge Medications Prescriptions: Ondansetron [Zofran Odt] 4 mg SL Q8H PRN #15 tab.rapdis PRN Reason: Nausea/Vomiting Home Medications: Ambulatory Orders Ondansetron [Zofran Odt] 4 mg SL Q8H PRN #15 tab.rapdis 08/09/17 [Last Taken Unknown] Discharge Plan - Discharge Instructions Activity at Discharge: Increase Activity as Tolerated Diet at Discharge: Advance to Usual Diet Additional Instructions: Take Zofran 4mg tablet every 8 hours as needed for nausea Follow up with your pcp in 7-10 days -Make sure to mention blood in urine to be evaluated further Return to the ED if your symptoms worsen, or if you have any chest pain Quality Measures - Quality Measures Quality Measures: Documentation of Current Medications in Medical Record, Screening for High Blood Pressure and F/U Documented - Current Medications Quality Measure: Measure #130: Documentation of Current Medications Documentation of Current Medications: <Current Medications Documented/Reviewed> [G8427] - Blood Pressure Screening Quality Measure: Screening for High Blood Pressure and Follow-Up Documented Does Patient Have Any of the Following: No Blood Pressure Classification: Pre-Hypertensive BP Reading Systolic Measurement: 159 Diastolic Measurement: 82 Screening for High Blood Pressure: < Pre-Hypertensive BP, F/U Documented > [ [id number]] Pre-Hypertensive Follow-up Interventions: Follow-up with rescreen every year. - Elder Abuse Suspicion Index EASI Reference Information: Oz PRICE, Hanna C, Nnamdi D, Chaitanya Singh.Development and validation of a tool to assist physicians identification of elder abuse: The Elder Abuse Suspicion Index (EASI ). Journal of Elder Abuse and Neglect, 2008; 20 (3): 276-300.
[2017-08-09] MEDS ORDERED: ENOXAPARIN 40 MG/0.4 ML SYR SQ SCH (22:00)
== END 2017-08-09 18:20 | disposition home or self-care (01) ==
LOC: ER 16:27 → MEDSURG 22:07
PROVIDERS: ADMIT Internal Medicine; ATTEND Internal Medicine
DX: G43.A1 Cyclical vomiting, in migraine, intractable (principal); R07.9 Chest pain, unspecified; F14.10 Cocaine abuse, uncomplicated
CPT/HCPCS: 71046; 74176; 80048; 80053; 80061; 80076; 80305; 81001; 82550; 82553; 83036; 83690; 84443; 84484; 85025; 85027; 93005; 93010; 96361; 96365; 96375; 96376; 99220; 99285; J2405; J2550; J7030